=== PATIENT | female | born 1955 | race Two or more races ===

== ENCOUNTER → 2020-04-15 | Outpatient (CLI) | payer MEDICAID | END | disposition home or self-care (01) | LOC: Rad HDHVI 15:45 | PROVIDERS: ATTEND Internal Medicine Cardiovascular Disease | DX: R07.89 Other chest pain (principal); R06.02 Shortness of breath | CPT/HCPCS: 93306 ==

== ENCOUNTER → 2020-05-13 | Outpatient (CLI) | payer MEDICAID ==
[~2020-05-13] VITALS: Ht 177.8 cm; Wt 95.3 kg
[~2020-05-13] MED LIST: ADENOSINE 80 MG in GIVE UN-DILUTED 0 ML IV ONE; ADENOSINE 90 MG/30 ML INJ IV ONE
== END | disposition home or self-care (01) ==
LOC: Rad HDHVI 09:02
PROVIDERS: ATTEND Internal Medicine Cardiovascular Disease
DX: I20.0 Unstable angina (principal); R00.2 Palpitations; E78.5 Hyperlipidemia, unspecified; I10 Essential (primary) hypertension; J44.9 Chronic obstructive pulmonary disease, unspecified; R06.02 Shortness of breath; I63.9 Cerebral infarction, unspecified
CPT/HCPCS: 78452; 93005; 96374; 96375; A9500; J0153